=== PATIENT | male | born 1990 | race Two or more races ===

== ENCOUNTER 2019-03-03 12:58 | Emergency (ER) | payer BC ==
[~2019-03-03] VITALS: Ht 170.2 cm; Wt 90.3 kg
--- NOTE | 2019-03-03 13:22 | PHYS DOC ---
Adult General Chief Complaint Chief Complaint: HEMORRHOIDS HPI HPI Patient is a 28 year old female with history of hemorrhoids since 2013 who presents today to the ED complaining of the same. Patient states this episode began 4 days ago. He states he noted some streaks of bright red blood in his stool. He states he usually has to push hard to have bowel movements. Patient denies any abdominal pain, denies any nausea or vomiting. Review of Systems Review of Systems Constitutional: Denies fever or chills [] Eyes: Denies change in visual acuity, redness, or eye pain [] HENT: Denies nasal congestion or sore throat [] Respiratory: Denies cough or shortness of breath [] Cardiovascular: No additional information not addressed in HPI [] GI: Reports hemorrhoids and bloody stools. Denies abdominal pain, nausea, vomiting : Denies dysuria or hematuria [] Musculoskeletal: Denies back pain or joint pain [] Integument: Denies rash or skin lesions [] Neurologic: Denies headache, focal weakness or sensory changes [] Endocrine: Denies polyuria or polydipsia [] All other systems were reviewed and found to be within normal limits, except as documented in this note. Allergies Allergies Allergies Coded Allergies Type Severity Reaction Last Updated Verified No Known Drug Allergies 03/03/19 No Physical Exam Physical Exam Constitutional: Well developed, well nourished, no acute distress, non-toxic appearance. [] HENT: Normocephalic, atraumatic, bilateral external ears normal, oropharynx moist, no oral exudates, nose normal. [] Eyes: PERRLA, EOMI, conjunctiva normal, no discharge. [] Neck: Normal range of motion, no tenderness, supple, no stridor. [] Cardiovascular:Heart rate regular rhythm, no murmur [] Lungs & Thorax: Bilateral breath sounds clear to auscultation [] Abdomen: Bowel sounds normal, soft, no tenderness, no masses, no pulsatile masses. [] Trace nonthrombosed hemorrhoids noted on the exterior rectum region. No palpable internal hemorrhoids, no mass is palpable in the rectal region. No blood noted during rectal exam. Skin: Warm, dry, no erythema, no rash. [] Back: No tenderness, no CVA tenderness. [] Extremities: No tenderness, no cyanosis, no clubbing, ROM intact, no edema. [] Neurologic: Alert and oriented X 3, normal motor function, normal sensory function, no focal deficits noted. [] Psychologic: Affect normal, judgement normal, mood normal. [] Current Patient Data Vital Signs Vital Signs Date Time Temp Pulse Resp B/P (MAP) Pulse Ox O2 Delivery O2 Flow Rate FiO2 03/03/19 13:00 98.3 74 12 133/62 (85) 96 Room Air 98.3 Lab Values Laboratory Tests Test 03/03/19 13:25 White Blood Count 7.4 x10^3/uL (4.0-11.0) Red Blood Count 4.98 x10^6/uL (4.30-5.70) Hemoglobin 16.2 g/dL (13.0-17.5) Hematocrit 46.5 % (39.0-53.0) Mean Corpuscular Volume 93 fL (79-100) Mean Corpuscular Hemoglobin 32 pg (25-35) Mean Corpuscular Hemoglobin Concent 35 g/dL (31-37) Red Cell Distribution Width 13.2 % (11.5-14.5) Platelet Count 252 x10^3/uL (140-400) Neutrophils (%) (Auto) 64 % (31-73) Lymphocytes (%) (Auto) 27 % (24-48) Monocytes (%) (Auto) 8 % (0-9) Eosinophils (%) (Auto) 1 % (0-3) Basophils (%) (Auto) 1 % (0-3) Neutrophils # (Auto) 4.7 x10^3uL (1.8-7.7) Lymphocytes # (Auto) 2.0 x10^3/uL (1.0-4.8) Monocytes # (Auto) 0.6 x10^3/uL (0.0-1.1) Eosinophils # (Auto) 0.0 x10^3/uL (0.0-0.7) Basophils # (Auto) 0.1 x10^3/uL (0.0-0.2) Sodium Level 142 mmol/L (136-145) Potassium Level 4.2 mmol/L (3.5-5.1) Chloride Level 103 mmol/L (98-107) Carbon Dioxide Level 28 mmol/L (21-32) Anion Gap 11 (6-14) Blood Urea Nitrogen 19 mg/dL (8-26) Creatinine 0.9 mg/dL (0.7-1.3) Estimated GFR (Cockcroft-Gault) 100.5 BUN/Creatinine Ratio 21 (6-20) H Glucose Level 96 mg/dL (70-99) Calcium Level 9.6 mg/dL (8.5-10.1) Total Bilirubin 1.2 mg/dL (0.2-1.0) H Aspartate Amino Transferase (AST) 40 U/L (15-37) H Alanine Aminotransferase (ALT) 62 U/L (16-63) Alkaline Phosphatase 92 U/L (46-116) Total Protein 8.4 g/dL (6.4-8.2) H Albumin 4.3 g/dL (3.4-5.0) Albumin/Globulin Ratio 1.0 (1.0-1.7) Laboratory Tests 03/03/19 13:25 Laboratory Tests 03/03/19 13:25 EKG EKG [] Radiology/Procedures Radiology/Procedures [] Course & Med Decision Making Course & Med Decision Making Pertinent Labs and Imaging studies reviewed. (See chart for details) This is a 28-year-old male patient with history of hemorrhoids and what sounds like constipation presenting to the ED today with the same, symptoms for 4 days. Hemoccult did not have any stool. CBC with a normal WBC, normal hemoglobin and hematocrit. Nothing really acute on the CMP. Patient was discharged to home. Discussed the importance of stool softeners. Given prescription for docusate, given prescription for Anusol suppository. Sitz baths recommended. Talked about increasing dietary fiber intake as well as water intake. Exercise also recommended. Dragon Disclaimer Dragon Disclaimer This electronic medical record was generated, in whole or in part, using a voice recognition dictation system. Departure Departure Impression: Primary Impression: Hemorrhoids Additional Impression: Constipation Disposition: 01 HOME, SELF-CARE Condition: STABLE Referrals: NO PCP (PCP) MARCO CHILDERS MD follow up in 1 week Patient Instructions: Hemorrhoids Additional Instructions: You were evaluated in the emergency room for hemorrhoids. This typically occur on people who are constipated. Please increase your dietary fiber intake as well as a water intake. Try to exercise, consider using sitz baths, consider using Anusol suppository or creams. You can also use [id number] tucks Scripts Hydrocortisone Acetate (ANUSOL-HC) 25 Mg Supp.rect 1 SUPP RC BID, #14 SUPP Prov: ARIES BEDOYA APRN 03/03/19 Docusate Sodium (DOCUSATE SODIUM) 100 Mg Capsule 1 CAP PO DAILY, #30 CAP Prov: ARIES BEDOYA APRN 03/03/19 Problem Qualifiers Primary Impression: Hemorrhoids Hemorrhoid type: unspecified Qualified Codes: K64.9 - Unspecified hemorrhoids Additional Impression: Constipation Constipation type: unspecified constipation type Qualified Codes: K59.00 - Constipation, unspecified ARIES BEDOYA APRN Mar 03, 2019 13:22
[2019-03-03 13:36] LABS: BASO # 0.1 x10^3/uL (0.0-0.2); BASO % 1 % (0-3); EOS % 1 % (0-3); HEMATOCRIT 46.5 % (39.0-53.0); HEMOGLOBIN 16.2 g/dL (13.0-17.5); LYMPH % 27 % (24-48); MEAN CORPUSCULAR HEMOGLOBIN 32 pg (25-35); MEAN CORPUSCULAR HGB CONC 35 g/dL (31-37); MEAN CORPUSCULAR VOLUME 93 fL (79-100); MONO # 0.6 x10^3/uL (0.0-1.1); MONO % 8 % (0-9); NEUT # 4.7 x10^3uL (1.8-7.7); NEUT % 64 % (31-73); PLATELET COUNT 252 x10^3/uL (140-400); RED BLOOD COUNT 4.98 x10^6/uL (4.30-5.70); RED CELL DISTRIBUTION WIDTH 13.2 % (11.5-14.5); WHITE BLOOD COUNT 7.4 x10^3/uL (4.0-11.0)
[2019-03-03 13:55] LABS: CALCIUM 9.6 mg/dL (8.5-10.1); CREATININE 0.9 mg/dL (0.7-1.3); GFR 100.5; POTASSIUM 4.2 mmol/L (3.5-5.1)
[2019-03-03 14:00] LABS: ALBUMIN 4.3 g/dL (3.4-5.0); TOTAL BILIRUBIN 1.2 mg/dL (0.2-1.0); TOTAL PROTEIN 8.4 g/dL (6.4-8.2)
[2019-03-03] MEDS ORDERED: HYDR25SU18 RC (14:18)
[2019-03-03] MEDS ORDERED: DOCU100C28 PO (14:18)
[2019-03-03 14:32] VITALS: BP 124/66
== END 2019-03-03 14:34 | disposition home or self-care (01) ==
LOC: ER 12:58
DX: K64.8 Other hemorrhoids (principal); K59.00 Constipation, unspecified; K92.1 Melena
CPT/HCPCS: 36415; 80053; 85025; 99284

== ENCOUNTER → 2022-01-09 | Outpatient (CLI) | payer BC ==
[~2022-01-09] MED LIST: DOCU100C28 PO; HYDR25SU18 RC
--- NOTE | 2022-01-09 16:11 | RAD ---
EXAM: ULTRASOUND ABDOMEN COMPLETE CLINICAL HISTORY: Elevated LFTs, epigastric pain COMPARISON: None available. TECHNIQUE: Ultrasound of the upper abdomen was performed. FINDINGS: Pancreas is poorly visualized. The visualized aorta and IVC are unremarkable. The liver demonstrates diffuse increase in echogenicity, most commonly reflecting hepatic steatosis. There is borderline hepatomegaly with the liver measuring 17.7 cm longitudinally.. The common bile d uct is nondilated at 2 mm. No intrahepatic biliary dilatation is seen.The gallbladder is unremarkable without evidence of wall thickening, stones, or sludge. The spleen is enlarged measuring 13 cm longitudinally. The right kidney is normal in appearance measuring 11.8 cm in length. Left kidney is unremarkable in appearance measuring 12.4 cm in length. IMPRESSION: 1. Borderline hepatomegaly and mild splenomegaly 2. Probable hepatic steatosis. Electronically signed by: Wilfredo Fuentes MD (01/09/2022 4:08 PM) [id number]
== END ==
LOC: US 14:10
PROVIDERS: ATTEND Internal Medicine Gastroenterology
DX: R16.1 Splenomegaly, not elsewhere classified (principal); R10.13 Epigastric pain
CPT/HCPCS: 76700